=== PATIENT | male | born 1990 | race Caucasian/White ===

== ENCOUNTER 2025-02-17 07:15 | Outpatient (REF) | payer OTHER, SELFPAY ==
--- NOTE | ~2025-02-17 | MR_ITS ---
EXAMINATION: MRI LEFT KNEE WITHOUT CONTRAST HISTORY: PAIN LEFT KNEE PATELLAR TENDONITIS VS IMPINGEMENT FAT PAD COMPARISON: There are no prior studies for comparison. TECHNIQUE: Coronal T1 and fat-suppressed proton density, sagittal proton density and fat-suppressed proton density, and axial fat suppressed T2 weighted MR images of the left knee were obtained. FINDINGS: Bone marrow: There is a moderate-sized area of marrow edema involving the central portion of the distal femoral metaphysis and epiphyseal regions. There is associated subchondral cyst formation. The overlying cartilage appears intact. Joint effusion: There is no joint effusion. Godfrey's cyst: There is no Godfrey's cyst. Articular cartilage: Intact Muscles/soft tissues: The visualized muscles demonstrate normal signal intensity. The quadriceps fat pad is preserved without associated edema. There is minimal edema involving the prefemoral fat pad. Anterior cruciate ligament: Intact Posterior cruciate ligament: Intact Medial collateral ligament: Intact Lateral collateral ligament: Intact Medial meniscus: There is a horizontally oriented linear focus of increased T2 signal intensity at the junction of the body and posterior horn of the medial meniscus. This contacts the inferior joint surface, consistent with a tear. The anterior horn is intact. Lateral meniscus: Intact Flexor mechanism: The popliteus, gastrocnemius, and hamstring tendons are intact. Quadriceps tendon: Intact Patellar tendon: Intact Patellar retinacula: Intact MR/MR knee LT wo con IMPRESSION: 1. Moderate-sized area of bone marrow edema in the central distal femur, suggestive of a bone contusion. There is associated subchondral cyst formation with intact overlying articular cartilage. 2. Horizontal tear of the junction of the body and posterior horn of the medial meniscus. 3. Minimal edema involving the prefemoral fat pad. Electronically signed by: Velasquez Carreno MD 02/17/2025 08:04 AM EDT
== END 2025-02-17 07:16 | disposition home or self-care (01) ==
LOC: HO.MRI 07:15
PROVIDERS: PCP Nurse Practitioner Adult Health; Visit Provider Orthopaedic Surgery Orthopaedic Trauma
DX: M25.562 Pain in left knee (principal)
CPT/HCPCS: 73721

== ENCOUNTER → 2025-02-17 07:25 | Outpatient (BNV) | payer OTHER, SELFPAY | PROVIDERS: PCP Nurse Practitioner Adult Health; Visit Provider Radiology Diagnostic Radiology | DX: M71.22 Synovial cyst of popliteal space [Baker], left knee (principal); S83.242A Other tear of medial meniscus, current injury, left knee, initial encounter; M25.861 Other specified joint disorders, right knee | CPT/HCPCS: 73721 ==